=== PATIENT | female | born 1940 | race Caucasian/White ===

== ENCOUNTER → 2017-02-15 | Outpatient (CLI) | payer MEDICARE, OTHER | LOC: HEART 5 07:19 | DX: R00.2 Palpitations (principal); I10 Essential (primary) hypertension; E78.5 Hyperlipidemia, unspecified; R07.9 Chest pain, unspecified; R11.10 Vomiting, unspecified | CPT/HCPCS: 78452; 93306; A9502 ==

== ENCOUNTER → 2020-12-16 | Outpatient (CLI) | payer MEDICARE, OTHER | LOC: ECHO 10:00 | DX: R01.1 Cardiac murmur, unspecified (principal); I07.1 Rheumatic tricuspid insufficiency | CPT/HCPCS: ECHO; 93306 ==

== ENCOUNTER → 2021-06-19 | Outpatient (CLI) | payer MEDICARE, OTHER | LOC: US 09:17 | DX: K76.0 Fatty (change of) liver, not elsewhere classified (principal); K86.89 Other specified diseases of pancreas | CPT/HCPCS: 76700 ==

== ENCOUNTER → 2021-07-16 | Outpatient (CLI) | payer MEDICARE, OTHER | LOC: CT 09:13 | DX: K86.9 Disease of pancreas, unspecified (principal) | CPT/HCPCS: 36415; 74170; 82565; Q9967 ==

== ENCOUNTER → 2021-08-15 | Outpatient (CLI) | payer MEDICARE, OTHER | LOC: MRI 09:41 | DX: R10.13 Epigastric pain (principal) | CPT/HCPCS: 36415; 74183; 80076; 82150; 83690; A9577 ==